=== PATIENT | female | born 2000 | race Caucasian/White ===

== ENCOUNTER 2020-10-11 18:09 | Emergency (ER) | payer OTHER ==
[~2020-10-11] VITALS: Ht 157.5 cm; Wt 59.0 kg
[2020-10-11 18:10] VITALS: BP 123/47
--- NOTE | 2020-10-11 18:10 | NUR ---
Patient VALENTE [facility] accompanied by Anastasia NIX for pre-booking medical screening exam, transferred to chair Magy MARICSAL evaluating the patient.
--- NOTE | 2020-10-11 18:20 | NUR ---
Dr. Rodriguez is evaluating the patient.
--- NOTE | 2020-10-11 18:25 | NUR ---
miguel NIX for prebooking and medical clearance. Pt was found on a roof and appears under the influence. Patient arrived by ambulance in 4 point restraints. Pt erratic and not making sense. Pt will answer questions appropriately when re-directed. Patient denies any pain. Denies medical hx. Pt states her LMP was a month ago.
[2020-10-11 18:37] VITALS: BP 123/47
--- NOTE | 2020-10-11 18:39 | NUR ---
PATIENT [facility] [employer]. PATIENT EXAMINED BY DR. CURRAN. PATIENT MEDICALLY CLEARED AND RELEASED IN CUSTODY IN STABLE CONDITION. ORIGINAL PRE-BOOK FORM GIVEN TO [employer]ER [employer].
== END 2020-10-11 18:39 ==
LOC: EDBD 18:09 → MED 18:09
DX: R45.1 Restlessness and agitation (principal); T50.905A Adverse effect of unspecified drugs, medicaments and biological substances, initial encounter; R41.82 Altered mental status, unspecified; Z02.89 Encounter for other administrative examinations; Z98.890 Other specified postprocedural states; Y92.89 Other specified places as the place of occurrence of the external cause
CPT/HCPCS: 99283

== ENCOUNTER 2021-04-17 17:20 | Emergency (ER) | payer SELFPAY ==
[~2021-04-17] VITALS: Ht 154.9 cm; Wt 77.1 kg
[2021-04-17 17:28] VITALS: BP 136/46
--- NOTE | 2021-04-17 17:46 | NUR ---
urine in knott bin at this time near sink
[2021-04-17] MEDS ORDERED: ACYC400T14 PO (18:14)
[2021-04-17 18:27] VITALS: BP 136/46
--- NOTE | 2021-04-17 18:27 | NUR ---
Patient discharged with v/s stable. Written and verbal after care instructions given and explained. Patient alert, oriented and verbalized understanding of instructions. Ambulatory with steady gait. All questions addressed prior to discharge. ID band removed. Patient advised to follow up with PMD. Rx of acyclovir (sent) given. Patient educated on indication of medication including possible reaction and side effects. Opportunity to ask questions provided and answered.
== END 2021-04-17 18:27 | disposition home or self-care (01) ==
LOC: MED 17:20
DX: B00.9 Herpesviral infection, unspecified (principal); Z20.2 Contact with and (suspected) exposure to infections with a predominantly sexual mode of transmission; Z79.899 Other long term (current) drug therapy; Z98.890 Other specified postprocedural states
CPT/HCPCS: 36415; 81002; 81025; 86592; 86694; 86706; 86803; 87252; 87340; 87491; 87529; 99283